=== PATIENT | female | born 1990 | race African-American/Black ===

== ENCOUNTER 2017-07-10 22:01 | Emergency (ER) | payer SELFPAY ==
[~2017-07-10] VITALS: Ht 160 cm; Wt 51.0 kg
[2017-07-11 00:59] LABS: CLARITY URINE CLEAR (CLEAR); COLOR URINE YELLOW (YELLOW); GLUCOSE URINE NEGATIVE (NEGATIVE); KETONES URINE NEGATIVE (NEGATIVE); LEUKOCYTE ESTERASE URINE NEGATIVE (NEGATIVE); NITRITE URINE NEGATIVE (NEGATIVE); OCCULT BLOOD URINE NEGATIVE (NEGATIVE); PH URINE 6.5 (4.5-8.0); PROTEIN URINE NEGATIVE (NEGATIVE)
[2017-07-11] MEDS ORDERED: KETOROLAC 30MG/ML VIAL IM ONE (01:00)
[2017-07-11] MEDS ORDERED: ONDANSETRON 4MG ODT PO PRN ×2 (01:00→01:15)
[2017-07-11] MEDS ORDERED: HYDROCODONE/ACETAMINOPHEN 5/325MG TABLET PO ONE (01:15)
[2017-07-11 01:22] LABS: CHLORIDE 106 mEq/L (98-107)
[2017-07-11 01:30] LABS: CARBON DIOXIDE 26 mEq/L (21-32)
[2017-07-11 01:37] LABS: BASOPHILS % 0.4 % (0.0-2.0); EOSINOPHILS % 0.4 % (0.0-5.0); HEMATOCRIT. 35.1 % (36.0-48.0); HEMOGLOBIN. 11.7 g/dL (12.0-16.0); LYMPHOCYTES % 10.9 % (20.0-50.0); MEAN CORPUSCULAR HEMOGLOBIN 29.5 pg (28.0-32.0); MEAN CORPUSCULAR VOLUME 88.3 fL (81.0-99.0); MEAN PLATELET VOLUME 9.7 fl (7.4-10.4); MONOCYTES % 6.5 % (2.0-8.0); NEUTROPHILS % 81.8 % (40.0-76.0); PLATELET 171 x1000/uL (130-400); RED BLOOD CELL COUNT 3.98 mill/uL (4.2-5.4)
[2017-07-11 02:00] VITALS: BP 121/74
== END 2017-07-11 02:00 | disposition home or self-care (01) ==
LOC: ER 22:01
DX: R10.2 Pelvic and perineal pain (principal); F12.10 Cannabis abuse, uncomplicated; Z88.6 Allergy status to analgesic agent
CPT/HCPCS: 36415; 80053; 81003; 81025; 85025; 99284